=== PATIENT | male | born 1960 | race Caucasian/White ===

== ENCOUNTER 2018-02-18 09:41 | Emergency (ER) | payer OTHER | END 2018-02-18 12:09 | disposition home or self-care (01) | LOC: FTE 09:41 | DX: S50.02XA Contusion of left elbow, initial encounter (principal); F17.210 Nicotine dependence, cigarettes, uncomplicated; S90.32XA Contusion of left foot, initial encounter; V29.40XA Motorcycle driver injured in collision with unspecified motor vehicles in traffic accident, initial encounter | CPT/HCPCS: 73080; 73080-LT; 73630-LT; 99284-25 ==